=== PATIENT | female | born 1965 | race Caucasian/White ===

== ENCOUNTER 2022-11-14 09:20 | Inpatient (IN) | payer BC, OTHER ==
[2022-11-14 09:26] VITALS: BMI 44.4
[2022-11-14] MEDS ORDERED: SODIUM CHLORIDE 0.9% 500 ML INFUS.BAG IV ONE (10:31)
[2022-11-14] MEDS ORDERED: MAG HYDROX/AL HYDROX/SIMETH 30 ML UNIT-DOSE CUP PO ONE ×2 (10:31→14:38)
[2022-11-14] MEDS ORDERED: ACETAMINOPHEN 1000 MG/100 ML BAG IVPB ONE (10:32)
[2022-11-14] MEDS ORDERED: ONDANSETRON 4 MG/2 ML VIAL IVPUSH ONE (10:32)
[2022-11-14] MEDS ORDERED: ACETAMINOPHEN INJECTION 100 ML IVPB ONE (11:02)
[2022-11-14] MEDS ORDERED: MAG HYDROX/AL HYDROX/SIMETH 30 ML UNIT-DOSE CUP ONE ×2 (11:02→16:18)
[2022-11-14] MEDS ORDERED: ONDANSETRON 4 MG/2 ML VIAL ONE (11:02)
[2022-11-14 11:45] LABS: BASO % 0.1 % (0-2.0); HEMATOCRIT 45.6 % (32.4-45.2); HEMOGLOBIN 15.3 GM/dL (10.7-15.3); LYMPH % 10.9 % (8-40); MCH 30.7 pg (25.7-33.7); MCHC 33.6 g/dl (32.0-36.0); MEAN CELL VOLUME 91.3 fl (80-96); MEAN PLT VOLUME 8.7 fl (7.5-11.1); PLATELET COUNT 233 10^3/uL (134-434); RBC 4.99 M/mm3 (3.60-5.2); RDW 13.7 % (11.6-15.6); WHITE BLOOD COUNT 8.1 K/mm3 (4.0-10.0)
[2022-11-14 12:00] LABS: POTASSIUM 3.7 mmol/L (3.5-5.1)
[2022-11-14 12:03] LABS: CALCIUM 8.7 mg/dL (8.5-10.1)
[2022-11-14 12:06] LABS: CREATININE 0.6 mg/dL (0.55-1.3); PHOSPHOROUS 2.6 mg/dL (2.5-4.9)
[2022-11-14 12:07] LABS: BILIRUBIN,TOTAL 2.5 mg/dL (0.2-1); TOT PROT 8.1 g/dl (6.4-8.2)
[2022-11-14] MEDS ORDERED: FAMOTIDINE 10 MG TABLET PO ONE (14:38)
[2022-11-14] MEDS ORDERED: DEXTROSE 5% IVPB ONE ×3 (15:08→15:09)
[2022-11-14] MEDS ORDERED: ACETYLCYSTEINE IVPB ONE ×3 (15:08→15:09)
[2022-11-14] MEDS ORDERED: WATER IVPB ONE ×3 (15:08→15:09)
[2022-11-14] MEDS ORDERED: ACETYLCYSTEINE INJECTION 20% 15,000 MG in DEXTROSE 5%-WATER - 250 ML IVPB NR (16:00)
[2022-11-14] MEDS ORDERED: WATER IVPB NR (16:00)
[2022-11-14] MEDS ORDERED: ACETYLCYSTEINE IVPB NR (16:00)
[2022-11-14] MEDS ORDERED: DEXTROSE 5% IVPB NR (16:00)
[2022-11-14] MEDS ORDERED: FAMOTIDINE 20 MG TABLET ONE (16:18)
[2022-11-14] MEDS ORDERED: morphine CARPU-JECT 4 MG/1 ML DISP.SYRIN IVPUSH ONE (16:30)
[2022-11-14] MEDS ORDERED: morphine SULFATE 4 MG/ML VIAL ONE (16:39)
[2022-11-14] MEDS ORDERED: ACETYLCYSTEINE INJECTION 20% 5,000 MG in DEXTROSE 5%-WATER - 500 ML IVPB NR (17:00)
[2022-11-14] MEDS ORDERED: ONDANSETRON 4 MG/2 ML VIAL IVPUSH PRN (19:28)
[2022-11-14 20:17] LABS: INR 1.31 (0.83-1.09); PROTHROMBIN TIME (PATIENT) 15.1 SEC (9.7-13.0)
[2022-11-14 20:30] LABS: POTASSIUM 3.7 mmol/L (3.5-5.1)
[2022-11-14 20:32] LABS: CALCIUM 7.9 mg/dL (8.5-10.1)
[2022-11-14 20:33] LABS: ALBUMIN 3.3 g/dl (3.4-5.0); BLOOD UREA NITROGEN 5.7 mg/dL (7-18)
[2022-11-14 20:35] LABS: CREATININE 0.6 mg/dL (0.55-1.3)
[2022-11-14 20:37] LABS: TOT PROT 7.2 g/dl (6.4-8.2)
[2022-11-14 20:38] LABS: BILIRUBIN,TOTAL 2.1 mg/dL (0.2-1)
[2022-11-14] MEDS ORDERED: ACETYLCYSTEINE INJECTION 20% 10,000 MG in DEXTROSE 5%-WATER - 1,000 ML IVPB NR (23:00)
[2022-11-15 08:13] LABS: BASO % 0.3 % (0-2.0); HEMATOCRIT 43.5 % (32.4-45.2); HEMOGLOBIN 14.9 GM/dL (10.7-15.3); LYMPH % 9.4 % (8-40); MCH 30.9 pg (25.7-33.7); MCHC 34.2 g/dl (32.0-36.0); MEAN CELL VOLUME 90.1 fl (80-96); MEAN PLT VOLUME 9.3 fl (7.5-11.1); MONO % 5.3 % (3.8-10.2); PLATELET COUNT 221 10^3/uL (134-434); RBC 4.83 M/mm3 (3.60-5.2); RDW 13.3 % (11.6-15.6); WHITE BLOOD COUNT 10.5 K/mm3 (4.0-10.0)
[2022-11-15 08:19] LABS: INR 1.2 (0.83-1.09); PROTHROMBIN TIME (PATIENT) 13.9 SEC (9.7-13.0)
[2022-11-15 08:20] LABS: ACTIVATED PTT 30.3 SECONDS (25.2-36.5)
[2022-11-15 08:23] LABS: POTASSIUM 3.2 mmol/L (3.5-5.1)
[2022-11-15 08:30] LABS: ALBUMIN 3.4 g/dl (3.4-5.0); BLOOD UREA NITROGEN 5.5 mg/dL (7-18)
[2022-11-15 08:31] LABS: CALCIUM 8.7 mg/dL (8.5-10.1)
[2022-11-15 08:34] LABS: BILIRUBIN,TOTAL 1.6 mg/dL (0.2-1); CREATININE 0.5 mg/dL (0.55-1.3)
[2022-11-15 08:36] LABS: TOT PROT 7.3 g/dl (6.4-8.2)
[2022-11-15] MEDS ORDERED: LACTATED RINGERS SOLUTION 1,000 ML/1,000 ML INFUS.BAG IV SCH (10:45)
[2022-11-15] MEDS ORDERED: ENOXAPARIN NA (PORCINE) 40 MG/0.4 ML DISP.SYRIN SQ ONE (12:34)
[2022-11-15] MEDS: ENOXAPARIN NA (PORCINE) 40 MG/0.4 ML DISP.SYRIN SQ SCH ×2 (12:38→23:02)
[2022-11-15 17:45] LABS: INR 1.23 (0.83-1.09); PROTHROMBIN TIME (PATIENT) 14.2 SEC (9.7-13.0)
[2022-11-15 17:47] LABS: ACTIVATED PTT 37.2 SECONDS (25.2-36.5)
[2022-11-15 17:59] LABS: POTASSIUM 3.2 mmol/L (3.5-5.1)
[2022-11-15 18:01] LABS: ALBUMIN 3.5 g/dl (3.4-5.0); BLOOD UREA NITROGEN 6.5 mg/dL (7-18); CALCIUM 9.1 mg/dL (8.5-10.1)
[2022-11-15 18:04] LABS: CREATININE 0.6 mg/dL (0.55-1.3)
[2022-11-15 18:06] LABS: BILIRUBIN,TOTAL 1.1 mg/dL (0.2-1); TOT PROT 7.3 g/dl (6.4-8.2)
[2022-11-16 10:43] LABS: BASO % 0.3 % (0-2.0); EOS % 0.4 % (0-4.5); HEMATOCRIT 43.9 % (32.4-45.2); HEMOGLOBIN 15.1 GM/dL (10.7-15.3); LYMPH % 16.9 % (8-40); MCH 30.9 pg (25.7-33.7); MCHC 34.4 g/dl (32.0-36.0); MEAN CELL VOLUME 89.8 fl (80-96); MEAN PLT VOLUME 8.9 fl (7.5-11.1); MONO % 7.7 % (3.8-10.2); NEUT % 74.7 % (42.8-82.8); PLATELET COUNT 208 10^3/uL (134-434); RBC 4.89 M/mm3 (3.60-5.2); RDW 13.7 % (11.6-15.6); WHITE BLOOD COUNT 8.8 K/mm3 (4.0-10.0)
[2022-11-16 10:47] LABS: INR 1.24 (0.83-1.09); PROTHROMBIN TIME (PATIENT) 14.3 SEC (9.7-13.0)
[2022-11-16 11:04] LABS: POTASSIUM 3.4 mmol/L (3.5-5.1)
[2022-11-16 11:07] LABS: CALCIUM 8.6 mg/dL (8.5-10.1)
[2022-11-16 11:08] LABS: ALBUMIN 3.5 g/dl (3.4-5.0); BLOOD UREA NITROGEN 8.9 mg/dL (7-18)
[2022-11-16 11:11] LABS: CREATININE 0.6 mg/dL (0.55-1.3)
[2022-11-16 11:12] LABS: BILIRUBIN,TOTAL 1.1 mg/dL (0.2-1)
[2022-11-16] MEDS ORDERED: INDOMETHACIN 50 MG RECTAL SUPPOSITORY PR ONE (11:57)
[2022-11-16] MEDS ORDERED: IOHEXOL 300 MG/ML INFUS..BTL IV ONE (13:42)
[2022-11-16] MEDS ORDERED: LACTATED RINGERS SOLUTION 1,000 ML/1,000 ML INFUS.BAG IV SCH (14:45)
[2022-11-16] MEDS: LACTATED RINGERS SOLUTION 1,000 ML/1,000 ML INFUS.BAG IV SCH (21:47)
[2022-11-17] MEDS: LACTATED RINGERS SOLUTION 1,000 ML/1,000 ML INFUS.BAG IV SCH ×4 (00:05→18:11)
[2022-11-17] MEDS: LEVOTHYROXINE NA 100 MCG TABLET (FP) PO SCH (06:03)
[2022-11-17] MEDS ORDERED: LACTATED RINGERS SOLUTION 1,000 ML/1,000 ML INFUS.BAG IV SCH (09:00)
[2022-11-17 11:32] LABS: BASO % 0.6 % (0-2.0); EOS % 1.3 % (0-4.5); HEMATOCRIT 38.5 % (32.4-45.2); HEMOGLOBIN 13.5 GM/dL (10.7-15.3); LYMPH % 18.1 % (8-40); MCH 31.3 pg (25.7-33.7); MEAN CELL VOLUME 89.4 fl (80-96); MEAN PLT VOLUME 8.7 fl (7.5-11.1); MONO % 7.6 % (3.8-10.2); NEUT % 72.4 % (42.8-82.8); PLATELET COUNT 177 10^3/uL (134-434); RDW 13.4 % (11.6-15.6)
[2022-11-17 11:42] LABS: POTASSIUM 3.4 mmol/L (3.5-5.1)
[2022-11-17 11:47] LABS: CALCIUM 8.2 mg/dL (8.5-10.1)
[2022-11-17 11:48] LABS: ALBUMIN 3.1 g/dl (3.4-5.0); BLOOD UREA NITROGEN 6.9 mg/dL (7-18)
[2022-11-17 11:50] LABS: BILIRUBIN,DIRECT 4.2 mg/dL (0.0-0.2); CREATININE 0.6 mg/dL (0.55-1.3)
[2022-11-17 11:52] LABS: TOT PROT 6.3 g/dl (6.4-8.2)
[2022-11-17 11:54] LABS: BILIRUBIN,TOTAL 5.3 mg/dL (0.2-1)
[2022-11-17] MEDS ORDERED: BENZOCAINE/MENTH/CETYLPYRD CL 1 EACH LOZENGE MM PRN (12:43)
[2022-11-17] MEDS: NYSTATIN 500,000 UNITS/5 ML SUSPENSION PO SCH (18:11)
[2022-11-17 22:07] LABS: FIBROSIS SCORE. 0.52 (0.00-0.21); HCV ALPHA 2 MACRO CHART 191 mg/dL (110-276); NECRO.INFLAM ACT.SCORE 0.95 (0.00-0.17); NECROINFLAM. ACTIVITY GRADE A3-Severe activity (.)
[2022-11-17] MEDS ORDERED: IBUPROFEN 400 MG TABLET (FP) PO ONE (22:42)
[2022-11-18] MEDS: NYSTATIN 500,000 UNITS/5 ML SUSPENSION PO SCH ×4 (01:33→17:35)
[2022-11-18] MEDS: LEVOTHYROXINE NA 100 MCG TABLET (FP) PO SCH (06:10)
[2022-11-18] MEDS: LACTATED RINGERS SOLUTION 1,000 ML/1,000 ML INFUS.BAG IV SCH ×4 (06:21→17:58)
[2022-11-18 11:49] LABS: HEMATOCRIT 39.5 % (32.4-45.2); HEMOGLOBIN 13.7 GM/dL (10.7-15.3); MCH 31.7 pg (25.7-33.7); MCHC 34.7 g/dl (32.0-36.0); MEAN CELL VOLUME 91.2 fl (80-96); MEAN PLT VOLUME 9.1 fl (7.5-11.1); PLATELET COUNT 185 10^3/uL (134-434); RBC 4.33 M/mm3 (3.60-5.2); RDW 13.2 % (11.6-15.6); WHITE BLOOD COUNT 6.2 K/mm3 (4.0-10.0)
[2022-11-18 12:01] LABS: POTASSIUM 3.6 mmol/L (3.5-5.1)
[2022-11-18 12:04] LABS: ALBUMIN 3.2 g/dl (3.4-5.0); BLOOD UREA NITROGEN 5.3 mg/dL (7-18); CALCIUM 8.3 mg/dL (8.5-10.1)
[2022-11-18 12:08] LABS: CREATININE 0.5 mg/dL (0.55-1.3)
[2022-11-18 12:09] LABS: TOT PROT 6.6 g/dl (6.4-8.2)
[2022-11-18 12:13] LABS: ALBUMIN 3.2 g/dl (3.4-5.0)
[2022-11-18 12:15] LABS: ANISOCYTOSIS 1+; BILIRUBIN,DIRECT 0.8 mg/dL (0.0-0.2); MACROCYTOSIS 0
[2022-11-18 12:16] LABS: TOT PROT 6.6 g/dl (6.4-8.2)
[2022-11-18 12:23] LABS: BILIRUBIN,TOTAL 1.4 mg/dL (0.2-1)
[2022-11-18 12:33] LABS: BILIRUBIN,TOTAL 1.5 mg/dL (0.2-1)
[2022-11-18] MEDS: metroNIDAZOLE 250 MG TABLET PO SCH ×2 (14:48→22:12)
[2022-11-19] MEDS: NYSTATIN 500,000 UNITS/5 ML SUSPENSION PO SCH ×4 (00:54→18:19)
[2022-11-19] MEDS: metroNIDAZOLE 250 MG TABLET PO SCH ×3 (06:23→21:40)
[2022-11-19] MEDS: LEVOTHYROXINE NA 100 MCG TABLET (FP) PO SCH (06:30)
[2022-11-19] MEDS ORDERED: BUPIVACAINE HCL/PF 0.25% (2.5MG/ML) 10 ML VIAL ONE (09:32)
[2022-11-19 09:43] LABS: BASO % 0.6 % (0-2.0); EOS % 2.4 % (0-4.5); HEMATOCRIT 40.7 % (32.4-45.2); HEMOGLOBIN 13.9 GM/dL (10.7-15.3); LYMPH % 19.4 % (8-40); MCH 30.7 pg (25.7-33.7); MCHC 34.1 g/dl (32.0-36.0); MEAN CELL VOLUME 90.2 fl (80-96); MEAN PLT VOLUME 8.8 fl (7.5-11.1); MONO % 6.8 % (3.8-10.2); NEUT % 70.8 % (42.8-82.8); PLATELET COUNT 210 10^3/uL (134-434); RBC 4.52 M/mm3 (3.60-5.2); RDW 13.3 % (11.6-15.6)
[2022-11-19 09:50] LABS: INR 1.29 (0.83-1.09); PROTHROMBIN TIME (PATIENT) 14.9 SEC (9.7-13.0)
[2022-11-19] MEDS ORDERED: LIDOCAINE HCL/PF 2% SDV 5ML VIAL ONE (10:05)
[2022-11-19 10:06] LABS: ALBUMIN 3.4 g/dl (3.4-5.0)
[2022-11-19] MEDS ORDERED: HYDROmorphone HCl 2 MG/ML VIAL ONE ×2 (10:06→11:03)
[2022-11-19] MEDS ORDERED: MIDAZOLAM HCL 2 MG/2 ML SINGLE DOSE VIAL ONE (10:06)
[2022-11-19] MEDS ORDERED: PROPOFOL 40 ML ONE (10:06)
[2022-11-19] MEDS ORDERED: ROCURONIUM BROMIDE 50 MG/5 ML SYRINGE ONE (10:06)
[2022-11-19 10:08] LABS: BILIRUBIN,DIRECT 0.6 mg/dL (0.0-0.2)
[2022-11-19 10:10] LABS: BILIRUBIN,TOTAL 1.1 mg/dL (0.2-1); TOT PROT 6.9 g/dl (6.4-8.2)
[2022-11-19] MEDS ORDERED: HEPARIN NA (PORCINE) 5,000 UNITS/ML 1ML VIAL ONE (10:54)
[2022-11-19] MEDS ORDERED: BUPIVACAINE HCL/PF 0.25% (2.5MG/ML) 10 ML VIAL IJ ONE (10:54)
[2022-11-19] MEDS ORDERED: ONDANSETRON 4 MG/2 ML VIAL ONE (11:03)
[2022-11-19] MEDS ORDERED: DEXAMETHASONE SOD PHOSPHATE 4 MG/1 ML VIAL ONE (11:03)
[2022-11-19] MEDS ORDERED: SUGAMMADEX SODIUM 200 MG/2 ML VIAL ONE (11:40)
[2022-11-19] MEDS ORDERED: BENZOCAINE/MENTH/CETYLPYRD CL 1 EACH LOZENGE MM PRN (12:55)
[2022-11-19] MEDS ORDERED: KETOROLAC TROMETHAMINE 15 MG/ML VIAL IVPUSH PRN (12:55)
[2022-11-19] MEDS ORDERED: ONDANSETRON 4 MG/2 ML VIAL IVPUSH PRN (12:55)
[2022-11-19] MEDS ORDERED: oxyCODONE HCL 5 MG TABLET PO PRN (12:56)
[2022-11-19] MEDS ORDERED: KETOROLAC TROMETHAMINE 30 MG/1 ML VIAL ONE (13:03)
[2022-11-19] MEDS: KETOROLAC TROMETHAMINE 15 MG/ML VIAL IVPUSH SCH ×2 (13:09→13:11)
[2022-11-19] MEDS: LACTATED RINGERS SOLUTION 1,000 ML IV SCH (15:22)
[2022-11-19] MEDS: LACTATED RINGERS SOLUTION 1,000 ML/1,000 ML INFUS.BAG IV SCH (15:23)
[2022-11-19] MEDS: HEPARIN NA (PORCINE) 5,000 UNITS/ML 1ML VIAL SQ SCH (21:40)
[2022-11-20] MEDS: NYSTATIN 500,000 UNITS/5 ML SUSPENSION PO SCH ×4 (01:01→17:46)
[2022-11-20] MEDS: KETOROLAC TROMETHAMINE 15 MG/ML VIAL IVPUSH SCH ×2 (01:03→07:40)
[2022-11-20] MEDS: HEPARIN NA (PORCINE) 5,000 UNITS/ML 1ML VIAL SQ SCH ×3 (05:45→21:46)
[2022-11-20] MEDS: metroNIDAZOLE 250 MG TABLET PO SCH ×3 (05:46→21:46)
[2022-11-20] MEDS: LEVOTHYROXINE NA 100 MCG TABLET (FP) PO SCH (07:05)
[2022-11-20 09:03] LABS: BASO % 0.4 % (0-2.0); EOS % 0.1 % (0-4.5); HEMATOCRIT 38.5 % (32.4-45.2); HEMOGLOBIN 13.2 GM/dL (10.7-15.3); LYMPH % 15.4 % (8-40); MCH 31.1 pg (25.7-33.7); MCHC 34.2 g/dl (32.0-36.0); MEAN CELL VOLUME 91.1 fl (80-96); MEAN PLT VOLUME 8.4 fl (7.5-11.1); MONO % 5.8 % (3.8-10.2); NEUT % 78.3 % (42.8-82.8); PLATELET COUNT 216 10^3/uL (134-434); RBC 4.22 M/mm3 (3.60-5.2); RDW 13.3 % (11.6-15.6); WHITE BLOOD COUNT 9.3 K/mm3 (4.0-10.0)
[2022-11-20] MEDS: LACTATED RINGERS SOLUTION 1,000 ML IV SCH ×2 (09:19→13:40)
[2022-11-20 09:23] LABS: POTASSIUM 3.7 mmol/L (3.5-5.1)
[2022-11-20 09:37] LABS: ALBUMIN 3.1 g/dl (3.4-5.0)
[2022-11-20 09:39] LABS: BILIRUBIN,TOTAL 0.8 mg/dL (0.2-1); TOT PROT 6.2 g/dl (6.4-8.2)
[2022-11-20 09:42] LABS: CALCIUM 8.7 mg/dL (8.5-10.1)
[2022-11-20 09:43] LABS: BLOOD UREA NITROGEN 5.4 mg/dL (7-18)
[2022-11-20 09:44] LABS: BILIRUBIN,DIRECT 0.4 mg/dL (0.0-0.2)
[2022-11-20 09:45] LABS: CREATININE 0.6 mg/dL (0.55-1.3)
[2022-11-20 09:47] LABS: BILIRUBIN,TOTAL 0.7 mg/dL (0.2-1)
[2022-11-20 09:49] LABS: TOT PROT 6.4 g/dl (6.4-8.2)
[2022-11-20] MEDS: LACTATED RINGERS SOLUTION 1,000 ML/1,000 ML INFUS.BAG IV SCH (16:24)
[2022-11-21] MEDS: NYSTATIN 500,000 UNITS/5 ML SUSPENSION PO SCH ×4 (01:20→17:18)
[2022-11-21] MEDS: HEPARIN NA (PORCINE) 5,000 UNITS/ML 1ML VIAL SQ SCH ×3 (06:09→22:48)
[2022-11-21] MEDS: LEVOTHYROXINE NA 100 MCG TABLET (FP) PO SCH (06:10)
[2022-11-21] MEDS: metroNIDAZOLE 250 MG TABLET PO SCH (06:10)
[2022-11-21 08:52] LABS: BASO % 0.4 % (0-2.0); EOS % 1.3 % (0-4.5); HEMATOCRIT 37.1 % (32.4-45.2); HEMOGLOBIN 12.4 GM/dL (10.7-15.3); MCH 30.8 pg (25.7-33.7); MCHC 33.6 g/dl (32.0-36.0); MEAN CELL VOLUME 91.6 fl (80-96); MEAN PLT VOLUME 8.8 fl (7.5-11.1); MONO % 7.5 % (3.8-10.2); NEUT % 64.8 % (42.8-82.8); PLATELET COUNT 182 10^3/uL (134-434); RBC 4.05 M/mm3 (3.60-5.2); RDW 13.5 % (11.6-15.6); WHITE BLOOD COUNT 6.1 K/mm3 (4.0-10.0)
[2022-11-21 09:13] LABS: POTASSIUM 3.2 mmol/L (3.5-5.1)
[2022-11-21 09:17] LABS: ALBUMIN 2.9 g/dl (3.4-5.0)
[2022-11-21 09:19] LABS: BLOOD UREA NITROGEN 4.6 mg/dL (7-18); CREATININE 0.5 mg/dL (0.55-1.3)
[2022-11-21 09:21] LABS: BILIRUBIN,TOTAL 0.7 mg/dL (0.2-1); TOT PROT 5.8 g/dl (6.4-8.2)
[2022-11-21 18:46] VITALS: RESP 18
[2022-11-22] MEDS: NYSTATIN 500,000 UNITS/5 ML SUSPENSION PO SCH ×3 (00:08→12:06)
[2022-11-22] MEDS: HEPARIN NA (PORCINE) 5,000 UNITS/ML 1ML VIAL SQ SCH ×2 (05:25→13:27)
[2022-11-22] MEDS: LEVOTHYROXINE NA 100 MCG TABLET (FP) PO SCH (06:19)
[2022-11-22] MEDS ORDERED: IBUPROFEN 800 MG/8 ML IJ IVPB ONE (06:26)
[2022-11-22] MEDS ORDERED: metroNIDAZOLE 250 MG TABLET PO SCH (08:00)
[2022-11-22 10:28] LABS: BASO % 0.5 % (0-2.0); EOS % 1.9 % (0-4.5); HEMATOCRIT 39.1 % (32.4-45.2); HEMOGLOBIN 13.8 GM/dL (10.7-15.3); LYMPH % 24.3 % (8-40); MCH 31.5 pg (25.7-33.7); MCHC 35.4 g/dl (32.0-36.0); MEAN CELL VOLUME 89.2 fl (80-96); MEAN PLT VOLUME 8.8 fl (7.5-11.1); MONO % 6.2 % (3.8-10.2); NEUT % 67.1 % (42.8-82.8); PLATELET COUNT 248 10^3/uL (134-434); RBC 4.38 M/mm3 (3.60-5.2); RDW 13.6 % (11.6-15.6); WHITE BLOOD COUNT 6.6 K/mm3 (4.0-10.0)
[2022-11-22 10:53] VITALS: BP 121/64; PULSE 82; TEMP 97.8
[2022-11-22 10:58] LABS: POTASSIUM 3.3 mmol/L (3.5-5.1)
[2022-11-22 11:04] LABS: CALCIUM 8.4 mg/dL (8.5-10.1)
[2022-11-22 11:05] LABS: ALBUMIN 3.2 g/dl (3.4-5.0); BLOOD UREA NITROGEN 6.8 mg/dL (7-18)
[2022-11-22 11:06] LABS: BILIRUBIN,TOTAL 0.8 mg/dL (0.2-1)
[2022-11-22 11:07] LABS: TOT PROT 6.5 g/dl (6.4-8.2)
[2022-11-22 11:08] LABS: CREATININE 0.6 mg/dL (0.55-1.3)
[2022-11-22] MEDS ORDERED: POTASSIUM CHLORIDE ORAL LIQUID 20 MEQ/15 ML PO ONE (11:15)
== END 2022-11-22 14:03 | disposition home or self-care (01) | DRG 417 ==
LOC: JER 09:20 → JERBED 15:17 → J5S 11-15 15:04
PROVIDERS: ADMIT Internal Medicine
PROC: 0FT44ZZ Resection of Gallbladder, Percutaneous Endoscopic Approach (ICD-10-PCS; 2022-11-19)
PROC: 0FC98ZZ Extirpation of Matter from Common Bile Duct, Via Natural or Artificial Opening Endoscopic (ICD-10-PCS; principal; 2022-11-19 10:00)
DX: K80.62 Calculus of gallbladder and bile duct with acute cholecystitis without obstruction (principal); K85.90 Acute pancreatitis without necrosis or infection, unspecified; K31.5 Obstruction of duodenum; Z68.41 Body mass index [BMI] 40.0-44.9, adult; E03.9 Hypothyroidism, unspecified; R79.89 Other specified abnormal findings of blood chemistry; G40.909 Epilepsy, unspecified, not intractable, without status epilepticus; E66.01 Morbid (severe) obesity due to excess calories; E78.5 Hyperlipidemia, unspecified; K80.50 Calculus of bile duct without cholangitis or cholecystitis without obstruction; K72.90 Hepatic failure, unspecified without coma; R74.01 Elevation of levels of liver transaminase levels
CPT/HCPCS: 36415; 71045-TC-FY; 74330-TC; 76705-TC; 80048; 80053; 80076; 80307; 82140; 82150; 82172; 82962; 82977; 83010; 83690; 83735; 83883; 84100; 84460; 84484; 85025; 85610; 85730; 86140; 86376; 86705; 86707; 86708; 86803; 86850; 86900; 86901; 87340; 87350; 87517; 87522; 87902; 88304-TC; 93005; 93010; 94760; 99285-25; J1644